=== PATIENT | female | born 1970 | race Caucasian/White ===

== ENCOUNTER 2019-03-21 13:22 | Outpatient (CLI) | payer BC ==
--- NOTE | 2019-03-21 14:28 | ULT ---
LEFT BREAST DIAGNOSTIC ULTRASOUND: Date: 03/21/19 INDICATION: Abnormality seen on outside screening evaluation of the left breast dated 03/14/19. FINDINGS: There is a 1.1 x 0.8 x 1.0 cm anechoic cyst that corresponds to the mammographic abnormality of the l eft breast at 1 o'clock position 4 cm from the nipple. IMPRESSION: BI-RADS Category 2 - Benign. Simple cyst corresponds to the mammographic abnormality seen within the left breast 1 o'clock position 4 cm from the nipple. Patient counseled on the findings prior to leavi the [facility]. POS: OFF
== END 2019-03-21 13:23 | disposition home or self-care (01) ==
LOC: BICMAMMO 13:22
PROVIDERS: ATTEND Obstetrics & Gynecology
DX: N63.20 Unspecified lump in the left breast, unspecified quadrant (principal); N60.02 Solitary cyst of left breast
CPT/HCPCS: 77066; G0279

== ENCOUNTER 2020-04-12 13:02 | Outpatient (CLI) | payer BC ==
--- NOTE | 2020-04-12 13:56 | ULT ---
EXAM: US Breast Limited Lt DATE: 04/12/2020 12:00 AM INDICATION: Palpable abnormality within left breast 12:00 position and pain in the left axilla COMPARISON: None. FINDING: There is a 8.3 x 5.4 x 6 mm cyst within the palpable region of interest within the left usha ast 12:00 position, 2 cm from the nipple. No suspicious sonographic abnormality seen within the left breast 2:00 position of pain, 6 cm from the nipple. IMPRESSION:BI-RADS Category 2-benign. 1. There is an 8 mm cyst within the palpable region of interest of the left breast 12:00 position, 2 cm from the nipple. No additional suspicious abnormality is seen within this region. 2. No suspicious sonographic abnormality in the region of pain of the left breast 2:00 position 6 cm from the nipple. 3. Will refer this patient back to the ordering clinician. Negative imaging should never deter biopsy if findings on clinical exam are suspicious. Patient was counseled findings prior to leaving the breast center.
--- NOTE | 2020-04-12 13:57 | MMO ---
Bilateral MAMMO Bilat Diag [facility]. CLINICAL HISTORY: Patient is 49 years old and is seen for diagnostic exam. The patient has no family history of breast cancer. The patient has no personal history of cancer. VIEWS: The views performed were: bilateral craniocaudal with tomosynthesis; bilateral mediolateral oblique with tomosynthesis; and bilateral mediolateral with tomosynthesis. FILMS COMPARED: The present examination has been compared to prior imaging studies performed at [facility] on 03/14/2019, and at [facility] on 03/12/2017, 03/21/2019 and 04/12/2020. This study has been interpreted with the assistance of computer-aided detection. MAMMOGRAM FINDINGS: The breasts are heterogeneously dense, which could obscure a lesion on mammography. No mammographic abnormality seen in the region of palpable concern in the left breast 12:00 position. Small 8 mm cyst is seen in this location on sonogram. No sonographic abnormality is seen in the region of pain (left breast 2:00). There are no suspicious masses, suspicious calcifications, or new areas of architectural distortion. IMPRESSION: THERE IS NO MAMMOGRAPHIC EVIDENCE OF MALIGNANCY. NEGATIVE IMAGING SHOULD NEVER DETER BIOPSY IF FINDINGS ON CLINICAL EXAM ARE SUSPICIOUS. WILL REFER THIS PATIENT BACK TO THE ORDERING CLINICIAN. THE FINDINGS AND RECOMMENDATIONS WERE DISCUSSED WITH THE PATIENT PRIOR TO HER LEAVING THE CENTER. A ROUTINE FOLLOW-UP MAMMOGRAM IN 1 YEAR IS RECOMMENDED. THE RESULTS OF THIS EXAM WERE SENT TO THE PATIENT. ACR BI-RADS Category 2 - Benign finding MAMMOGRAPHY NOTE: 1. A negative mammogram report should not delay a biopsy if a dominant of clinically suspicious mass is present. 2. Approximately 10% to 15% of breast cancers are not detected by mammography. 3. Adenosis and dense breasts may obscure an underlying neoplasm. Reported by: GALINA ANDREWS MD Electonically Signed: [id number]
== END 2020-04-12 13:03 | disposition home or self-care (01) ==
LOC: BICMAMMO 13:02
PROVIDERS: ATTEND Student in an Organized Health Care Education/Training Program
DX: N63.20 Unspecified lump in the left breast, unspecified quadrant (principal); N60.02 Solitary cyst of left breast
CPT/HCPCS: 77066; G0279